=== PATIENT | male | born 1960 | race Caucasian/White ===

== ENCOUNTER 2016-10-14 13:45 | Inpatient (IN) | payer OTHER ==
[~2016-10-14 13:45] MED LIST: ALLEGRA-D1 TAB.SR PO; BYSTOLIC5 M1 PO; BYSTOLIC5 MG PO; MOBIC15 M1 PO; NORCO 5-325 TA1 EACH PO
[2016-10-14 14:49] LABS: BASO % 1.1 % (0-2); BASO ABSOLUTE COUNT 0.2 tho/cmm (0.0-0.2); EOS % 1.8 % (0-7); EOSINOPHIL ABSOLUTE COUNT 0.3 tho/cmm (0.0-0.7); HGB-HEMOGLOBIN 14.2 gm/dl (13.5-17.0); IMMATURE GRANULOCYTES ABSOLUTE 0.24 tho/cmm (0-0.03); IMMATURE GRANULOCYTES PERCENT 1.6 % (0-0.3); LYMPH % 7.2 % (20-45); LYMPH ABSOLUTE COUNT 1.1 tho/cmm (0.8-4.5); MCHC MEAN CORPUSCULAR HGB CONC 36.4 % (32.0-36.0); MCV (MEAN CELL VOLUME) 90.7 fl (82.0-96.0); MONO % 10.8 % (0-12); MONOCYTE ABSOLUTE COUNT 1.6 tho/cmm (0.0-1.2); NEUTROPHIL ABSOLUTE COUNT 11.7 tho/cmm (1.6-8.0); NEUTROPHIL-AUTOMATED 11.7 tho/cmm (1.6-8.0); NEUTROPHILS % 77.5 % (40-80); PLATELET COUNT 240 tho/cmm (150-450); RED CELL DISTRIBUTION WIDTH 15.9 % (12.4-16.4); WHITE BLOOD COUNT 15.1 tho/cmm (4.0-10.0)
[2016-10-14 14:52] LABS: INR 2.5 INR (0.9-1.1); PROTHROMBIN TIME 29.3 SECONDS (9.0-13.6)
[2016-10-14 15:07] LABS: ALBUMIN 2.3 g/dl (3.5-5.0); ALCOHOL (ETOH) <10 mg/dl (<10); ALKALINE PHOSPHATASE 227 U/L (33-138); ALT/SGPT 49 U/L (12-78); BLOOD UREA NITROGEN 29 mg/dl (6-24); CALCIUM 8.1 mg/dl (8.5-10.5); CARBON DIOXIDE-VENOUS 23 mmol/L (22-32); CHLORIDE 94 mmol/l (96-110); GLUCOSE 93 mg/dL (70-110); LIPASE 188 U/L (73-393); SODIUM 128 mmol/L (135-145)
[2016-10-14 15:12] LABS: ALB/GLOB RATIO 0.5 (0.8-2.0); ANION GAP 15 mmol/L (0-20); AST/SGOT 213 U/L (10-40); CREATININE 1.87 mg/dl (0.60-1.30); POTASSIUM 3.7 mmol/L (3.7-5.1); eGFR VALUE FOR BLACK 46 mL/Min
[2016-10-14 15:15] LABS: BILIRUBIN,TOTAL 25.1 mg/dl (0.0-1.5)
[2016-10-14] MEDS ORDERED: [UNRECOGNIZED DRUG - OTHER] PO (16:23)
[2016-10-14] MEDS ORDERED: IBUPROFEN200 M2 PO (16:24)
[2016-10-14 16:35] LABS: URINE BILIRUBIN MODERATE (NEG); URINE BLOOD SMALL (NEG); URINE GLUCOSE (UA) NEGATIVE (NEG); URINE KETONE NEGATIVE (NEG); URINE LEUKOCYTE ESTERASE POSITIVE (NEG); URINE NITRITE NEGATIVE (NEG); URINE PH 6.5 (5.0-8.0); URINE PROTEIN MODERATE (NEG)
[2016-10-14 16:36] LABS: URINE APPEARANCE CLOUDY; URINE COLOR DARK YELLOW
[2016-10-14 16:45] LABS: URINE AMORPHOUS 2+; URINE BACTERIA 1+; URINE RBC RARE /[HPF] (0-5)
[2016-10-14 22:01] LABS: URINE TOTAL PROTEIN-RANDOM 32.3 mg/dl (<11.8)
[2016-10-15 02:39] LABS: URINE PRT/CR RATIO 0.27 Ratio (0.0-0.20)
[2016-10-15 05:49] LABS: BASO % 1.2 % (0-2); BASO ABSOLUTE COUNT 0.2 tho/cmm (0.0-0.2); EOS % 1.9 % (0-7); EOSINOPHIL ABSOLUTE COUNT 0.3 tho/cmm (0.0-0.7); HCT-HEMATOCRIT 37.7 % (36.0-53.5); HGB-HEMOGLOBIN 13.5 gm/dl (13.5-17.0); IMMATURE GRANULOCYTES ABSOLUTE 0.31 tho/cmm (0-0.03); IMMATURE GRANULOCYTES PERCENT 1.8 % (0-0.3); INR 2.5 INR (0.9-1.1); LYMPH % 8.7 % (20-45); LYMPH ABSOLUTE COUNT 1.5 tho/cmm (0.8-4.5); MCH (MEAN CORPUSCULAR HGB) 32.7 pg (28.0-32.0); MCHC MEAN CORPUSCULAR HGB CONC 35.8 % (32.0-36.0); MCV (MEAN CELL VOLUME) 91.3 fl (82.0-96.0); MEAN PLATELET VOLUME 10.8 cmc (9.4-12.4); MONO % 11.1 % (0-12); MONOCYTE ABSOLUTE COUNT 1.9 tho/cmm (0.0-1.2); NEUTROPHIL ABSOLUTE COUNT 12.9 tho/cmm (1.6-8.0); NEUTROPHIL-AUTOMATED 12.9 tho/cmm (1.6-8.0); NEUTROPHILS % 75.3 % (40-80); PLATELET COUNT 253 tho/cmm (150-450); PROTHROMBIN TIME 29.7 SECONDS (9.0-13.6); RED BLOOD COUNT 4.13 mil/cmm (4.40-5.70); RED CELL DISTRIBUTION WIDTH 15.8 % (12.4-16.4); WHITE BLOOD COUNT 17.1 tho/cmm (4.0-10.0)
[2016-10-15 06:03] LABS: ALBUMIN 2.2 g/dl (3.5-5.0); ALKALINE PHOSPHATASE 226 U/L (33-138); ALT/SGPT 48 U/L (12-78); AMYLASE 21 U/L (20-90); AST/SGOT 188 U/L (10-40); BLOOD UREA NITROGEN 27 mg/dl (6-24); CALCIUM 7.7 mg/dl (8.5-10.5); CARBON DIOXIDE-VENOUS 24 mmol/L (22-32); CHLORIDE 98 mmol/l (96-110); GLUCOSE 85 mg/dL (70-110); MAGNESIUM 3.1 mg/dl (1.8-2.6); PHOSPHOROUS 1.9 mg/dl (2.5-4.9); SODIUM 132 mmol/L (135-145)
[2016-10-15 06:14] LABS: ALB/GLOB RATIO 0.5 (0.8-2.0); ANION GAP 13 mmol/L (0-20); BILIRUBIN,DIRECT 22.2 mg/dl (0.0-0.3); BILIRUBIN,INDIRECT 3.2 mg/dL (0.0-1.0); CREATININE 1.67 mg/dl (0.60-1.30); LIPASE 318 U/L (73-393); eGFR VALUE FOR BLACK 53 mL/Min
[2016-10-15 06:16] LABS: BILIRUBIN,TOTAL 25.4 mg/dl (0.0-1.5); POTASSIUM 2.9 mmol/L (3.7-5.1)
[2016-10-15 09:45] LABS: IRON 89 ug/dl (49-181); IRON BINDING CAPACITY 157 ug/dl (250-450)
[2016-10-15 14:31] LABS: BODY FLUID APPEARANCE CLEAR (CLEAR); BODY FLUID VOLUME 1100 ml
[2016-10-15 14:32] LABS: BODY FLUID COLOR YELLOW (COLORLESS)
[2016-10-15 14:33] LABS: BODY FLUID RBC COUNT <1000 cmm (0); BODY FLUID WBC COUNT 98 cmm
[2016-10-15 16:29] LABS: BODY FLUID LYMPHOCYTES 6 %; BODY FLUID MACROPHAGES 78 %; BODY FLUID MESOTHELIAL CELLS 3 %; BODY FLUID NEUTROPHILS 13 %
[2016-10-16 05:24] LABS: BASO % 0.9 % (0-2); BASO ABSOLUTE COUNT 0.1 tho/cmm (0.0-0.2); EOS % 2.3 % (0-7); EOSINOPHIL ABSOLUTE COUNT 0.3 tho/cmm (0.0-0.7); HCT-HEMATOCRIT 35.1 % (36.0-53.5); HGB-HEMOGLOBIN 12.6 gm/dl (13.5-17.0); IMMATURE GRANULOCYTES ABSOLUTE 0.28 tho/cmm (0-0.03); IMMATURE GRANULOCYTES PERCENT 1.9 % (0-0.3); LYMPH % 8.5 % (20-45); LYMPH ABSOLUTE COUNT 1.3 tho/cmm (0.8-4.5); MCH (MEAN CORPUSCULAR HGB) 32.8 pg (28.0-32.0); MCHC MEAN CORPUSCULAR HGB CONC 35.9 % (32.0-36.0); MCV (MEAN CELL VOLUME) 91.4 fl (82.0-96.0); MEAN PLATELET VOLUME 10.8 cmc (9.4-12.4); MONO % 9.8 % (0-12); MONOCYTE ABSOLUTE COUNT 1.5 tho/cmm (0.0-1.2); NEUTROPHIL ABSOLUTE COUNT 11.3 tho/cmm (1.6-8.0); NEUTROPHIL-AUTOMATED 11.3 tho/cmm (1.6-8.0); NEUTROPHILS % 76.6 % (40-80); PLATELET COUNT 201 tho/cmm (150-450); RED BLOOD COUNT 3.84 mil/cmm (4.40-5.70); RED CELL DISTRIBUTION WIDTH 16.1 % (12.4-16.4); WHITE BLOOD COUNT 14.8 tho/cmm (4.0-10.0)
[2016-10-16 05:25] LABS: INR 2.4 INR (0.9-1.1); PROTHROMBIN TIME 28.5 SECONDS (9.0-13.6)
[2016-10-16 05:34] LABS: ALBUMIN 2.5 g/dl (3.5-5.0); ALKALINE PHOSPHATASE 172 U/L (33-138); ALT/SGPT 42 U/L (12-78); ANION GAP 15 mmol/L (0-20); AST/SGOT 174 U/L (10-40); BLOOD UREA NITROGEN 20 mg/dl (6-24); CALCIUM 7.4 mg/dl (8.5-10.5); CARBON DIOXIDE-VENOUS 19 mmol/L (22-32); CHLORIDE 104 mmol/l (96-110); GLUCOSE 74 mg/dL (70-110); POTASSIUM 3.1 mmol/L (3.7-5.1); SODIUM 135 mmol/L (135-145)
[2016-10-16 05:36] LABS: ALB/GLOB RATIO 0.7 (0.8-2.0); CREATININE 1.28 mg/dl (0.60-1.30); eGFR VALUE FOR BLACK 73 mL/Min
[2016-10-16 05:39] LABS: BILIRUBIN,TOTAL 24.8 mg/dl (0.0-1.5)
[2016-10-16 11:31] LABS: BODY FLUID TYPE ASCITIES; FLUID ALBUMIN <0.6 g/dl
[2016-10-17 06:03] LABS: BASO % 0.7 % (0-2); BASO ABSOLUTE COUNT 0.2 tho/cmm (0.0-0.2); EOS % 1.2 % (0-7); EOSINOPHIL ABSOLUTE COUNT 0.3 tho/cmm (0.0-0.7); HCT-HEMATOCRIT 36.3 % (36.0-53.5); HGB-HEMOGLOBIN 12.8 gm/dl (13.5-17.0); IMMATURE GRANULOCYTES ABSOLUTE 0.51 tho/cmm (0-0.03); IMMATURE GRANULOCYTES PERCENT 2.3 % (0-0.3); LYMPH % 7.2 % (20-45); LYMPH ABSOLUTE COUNT 1.6 tho/cmm (0.8-4.5); MCH (MEAN CORPUSCULAR HGB) 32.7 pg (28.0-32.0); MCHC MEAN CORPUSCULAR HGB CONC 35.3 % (32.0-36.0); MCV (MEAN CELL VOLUME) 92.8 fl (82.0-96.0); MEAN PLATELET VOLUME 10.9 cmc (9.4-12.4); MONO % 9.3 % (0-12); MONOCYTE ABSOLUTE COUNT 2.1 tho/cmm (0.0-1.2); NEUTROPHIL ABSOLUTE COUNT 17.6 tho/cmm (1.6-8.0); NEUTROPHIL-AUTOMATED 17.6 tho/cmm (1.6-8.0); NEUTROPHILS % 79.3 % (40-80); PLATELET COUNT 208 tho/cmm (150-450); RED BLOOD COUNT 3.91 mil/cmm (4.40-5.70); RED CELL DISTRIBUTION WIDTH 16.4 % (12.4-16.4); WHITE BLOOD COUNT 22.2 tho/cmm (4.0-10.0)
[2016-10-17 06:06] LABS: INR 2.3 INR (0.9-1.1); PROTHROMBIN TIME 26.9 SECONDS (9.0-13.6)
[2016-10-17 06:20] LABS: ALBUMIN 2.4 g/dl (3.5-5.0); ALKALINE PHOSPHATASE 189 U/L (33-138); ALT/SGPT 48 U/L (12-78); AST/SGOT 179 U/L (10-40); BLOOD UREA NITROGEN 20 mg/dl (6-24); CALCIUM 7.6 mg/dl (8.5-10.5); CARBON DIOXIDE-VENOUS 21 mmol/L (22-32); CHLORIDE 105 mmol/l (96-110); GLUCOSE 106 mg/dL (70-110); MAGNESIUM 2.9 mg/dl (1.8-2.6); SODIUM 137 mmol/L (135-145)
[2016-10-17 06:23] LABS: ALB/GLOB RATIO 0.6 (0.8-2.0); ANION GAP 14 mmol/L (0-20); eGFR VALUE FOR BLACK 74 mL/Min
[2016-10-17 06:24] LABS: CREATININE 1.27 mg/dl (0.60-1.30)
[2016-10-17 06:25] LABS: PHOSPHOROUS 0.9 mg/dl (2.5-4.9); POTASSIUM 2.9 mmol/L (3.7-5.1)
[2016-10-17 06:27] LABS: BILIRUBIN,TOTAL 24.9 mg/dl (0.0-1.5)
[2016-10-18 06:05] LABS: BASO ABSOLUTE COUNT 0.2 tho/cmm (0.0-0.2); EOS % 2.3 % (0-7); EOSINOPHIL ABSOLUTE COUNT 0.5 tho/cmm (0.0-0.7); HCT-HEMATOCRIT 37.3 % (36.0-53.5); HGB-HEMOGLOBIN 13.1 gm/dl (13.5-17.0); IMMATURE GRANULOCYTES PERCENT 1.8 % (0-0.3); LYMPH % 9.3 % (20-45); MCH (MEAN CORPUSCULAR HGB) 32.8 pg (28.0-32.0); MCHC MEAN CORPUSCULAR HGB CONC 35.1 % (32.0-36.0); MCV (MEAN CELL VOLUME) 93.3 fl (82.0-96.0); MEAN PLATELET VOLUME 11.1 cmc (9.4-12.4); MONO % 7.8 % (0-12); MONOCYTE ABSOLUTE COUNT 1.7 tho/cmm (0.0-1.2); NEUTROPHILS % 77.8 % (40-80); PLATELET COUNT 175 tho/cmm (150-450); RED CELL DISTRIBUTION WIDTH 16.5 % (12.4-16.4); WHITE BLOOD COUNT 21.9 tho/cmm (4.0-10.0)
[2016-10-18 06:09] LABS: INR 2.1 INR (0.9-1.1); PROTHROMBIN TIME 24.8 SECONDS (9.0-13.6)
[2016-10-18 06:23] LABS: ALBUMIN 2.5 g/dl (3.5-5.0); ALKALINE PHOSPHATASE 197 U/L (33-138); ALT/SGPT 60 U/L (12-78); ANION GAP 14 mmol/L (0-20); AST/SGOT 217 U/L (10-40); BLOOD UREA NITROGEN 17 mg/dl (6-24); CALCIUM 7.7 mg/dl (8.5-10.5); CARBON DIOXIDE-VENOUS 19 mmol/L (22-32); CHLORIDE 112 mmol/l (96-110); GLUCOSE 78 mg/dL (70-110); MAGNESIUM 2.6 mg/dl (1.8-2.6); PHOSPHOROUS 1.3 mg/dl (2.5-4.9); POTASSIUM 3.6 mmol/L (3.7-5.1); PREALBUMIN 3.8 mg/dl (20.0-40.0); SODIUM 141 mmol/L (135-145)
[2016-10-18 06:31] LABS: ALB/GLOB RATIO 0.7 (0.8-2.0); CREATININE 1.08 mg/dl (0.60-1.30); eGFR VALUE FOR BLACK 90 mL/Min
[2016-10-18 06:32] LABS: BILIRUBIN,TOTAL 26.4 mg/dl (0.0-1.5)
[2016-10-18 13:35] LABS: INR 1.8 INR (0.9-1.1)
[2016-10-18 13:42] LABS: PROTHROMBIN TIME 20.7 SECONDS (9.0-13.6)
[2016-10-18 18:10] LABS: BODY FLUID APPEARANCE CLEAR (CLEAR); BODY FLUID COLOR YELLOW (COLORLESS); BODY FLUID RBC COUNT <1000 cmm (0); BODY FLUID VOLUME 1000 ml; BODY FLUID WBC COUNT 78 cmm
[2016-10-19 05:46] LABS: BASO % 0.2 % (0-2); EOS % 0.4 % (0-7); EOSINOPHIL ABSOLUTE COUNT 0.1 tho/cmm (0.0-0.7); HCT-HEMATOCRIT 36.2 % (36.0-53.5); HGB-HEMOGLOBIN 12.6 gm/dl (13.5-17.0); IMMATURE GRANULOCYTES ABSOLUTE 0.25 tho/cmm (0-0.03); IMMATURE GRANULOCYTES PERCENT 1.2 % (0-0.3); LYMPH % 6.3 % (20-45); LYMPH ABSOLUTE COUNT 1.3 tho/cmm (0.8-4.5); MCH (MEAN CORPUSCULAR HGB) 32.9 pg (28.0-32.0); MCHC MEAN CORPUSCULAR HGB CONC 34.8 % (32.0-36.0); MCV (MEAN CELL VOLUME) 94.5 fl (82.0-96.0); MEAN PLATELET VOLUME 11.2 cmc (9.4-12.4); MONO % 7.3 % (0-12); MONOCYTE ABSOLUTE COUNT 1.6 tho/cmm (0.0-1.2); NEUTROPHIL ABSOLUTE COUNT 17.9 tho/cmm (1.6-8.0); NEUTROPHIL-AUTOMATED 17.9 tho/cmm (1.6-8.0); NEUTROPHILS % 84.6 % (40-80); PLATELET COUNT 146 tho/cmm (150-450); RED BLOOD COUNT 3.83 mil/cmm (4.40-5.70); RED CELL DISTRIBUTION WIDTH 16.7 % (12.4-16.4); WHITE BLOOD COUNT 21.1 tho/cmm (4.0-10.0)
[2016-10-19 06:06] LABS: ALBUMIN 2.5 g/dl (3.5-5.0); ALKALINE PHOSPHATASE 173 U/L (33-138); ALT/SGPT 61 U/L (12-78); ANION GAP 15 mmol/L (0-20); AST/SGOT 186 U/L (10-40); BLOOD UREA NITROGEN 17 mg/dl (6-24); CALCIUM 8.2 mg/dl (8.5-10.5); CARBON DIOXIDE-VENOUS 19 mmol/L (22-32); CHLORIDE 109 mmol/l (96-110); GLUCOSE 106 mg/dL (70-110); POTASSIUM 3.6 mmol/L (3.7-5.1); SODIUM 139 mmol/L (135-145)
[2016-10-19 06:18] LABS: BODY FLUID TYPE ASCITIC FLUID
[2016-10-19 06:38] LABS: ALB/GLOB RATIO 0.6 (0.8-2.0); eGFR VALUE FOR BLACK 62 mL/Min
[2016-10-19 06:39] LABS: BILIRUBIN,TOTAL 23.4 mg/dl (0.0-1.5); CREATININE 1.47 mg/dl (0.60-1.30)
[2016-10-20 05:16] LABS: BASO % 0.2 % (0-2); EOS % 0.2 % (0-7); EOSINOPHIL ABSOLUTE COUNT 0.1 tho/cmm (0.0-0.7); HCT-HEMATOCRIT 37.1 % (36.0-53.5); HGB-HEMOGLOBIN 12.7 gm/dl (13.5-17.0); IMMATURE GRANULOCYTES ABSOLUTE 0.44 tho/cmm (0-0.03); IMMATURE GRANULOCYTES PERCENT 1.7 % (0-0.3); LYMPH % 6.2 % (20-45); LYMPH ABSOLUTE COUNT 1.6 tho/cmm (0.8-4.5); MCH (MEAN CORPUSCULAR HGB) 32.7 pg (28.0-32.0); MCHC MEAN CORPUSCULAR HGB CONC 34.2 % (32.0-36.0); MCV (MEAN CELL VOLUME) 95.6 fl (82.0-96.0); MEAN PLATELET VOLUME 11.4 cmc (9.4-12.4); MONO % 8.1 % (0-12); MONOCYTE ABSOLUTE COUNT 2.1 tho/cmm (0.0-1.2); NEUTROPHIL ABSOLUTE COUNT 21.5 tho/cmm (1.6-8.0); NEUTROPHIL-AUTOMATED 21.5 tho/cmm (1.6-8.0); NEUTROPHILS % 83.6 % (40-80); PLATELET COUNT 164 tho/cmm (150-450); RED BLOOD COUNT 3.88 mil/cmm (4.40-5.70); RED CELL DISTRIBUTION WIDTH 16.8 % (12.4-16.4); WHITE BLOOD COUNT 25.7 tho/cmm (4.0-10.0)
[2016-10-20 05:24] LABS: INR 2.1 INR (0.9-1.1); PROTHROMBIN TIME 25.1 SECONDS (9.0-13.6)
[2016-10-20 05:34] LABS: ALBUMIN 2.5 g/dl (3.5-5.0); ALKALINE PHOSPHATASE 177 U/L (33-138); ALT/SGPT 70 U/L (12-78); ANION GAP 14 mmol/L (0-20); AST/SGOT 169 U/L (10-40); BLOOD UREA NITROGEN 24 mg/dl (6-24); CALCIUM 8.4 mg/dl (8.5-10.5); CARBON DIOXIDE-VENOUS 20 mmol/L (22-32); CHLORIDE 108 mmol/l (96-110); GLUCOSE 104 mg/dL (70-110); SODIUM 138 mmol/L (135-145)
[2016-10-20 05:43] LABS: ALB/GLOB RATIO 0.6 (0.8-2.0); BILIRUBIN,TOTAL 21.3 mg/dl (0.0-1.5); CREATININE 1.26 mg/dl (0.60-1.30); eGFR VALUE FOR BLACK 74 mL/Min
[2016-10-20 05:44] LABS: PHOSPHOROUS 0.9 mg/dl (2.5-4.9)
[2016-10-20 14:14] LABS: BASO % 0.2 % (0-2); BASO ABSOLUTE COUNT 0.1 tho/cmm (0.0-0.2); EOS % 1.2 % (0-7); EOSINOPHIL ABSOLUTE COUNT 0.3 tho/cmm (0.0-0.7); HCT-HEMATOCRIT 36.6 % (36.0-53.5); HGB-HEMOGLOBIN 12.8 gm/dl (13.5-17.0); IMMATURE GRANULOCYTES ABSOLUTE 0.59 tho/cmm (0-0.03); IMMATURE GRANULOCYTES PERCENT 2.1 % (0-0.3); LYMPH % 9.8 % (20-45); LYMPH ABSOLUTE COUNT 2.7 tho/cmm (0.8-4.5); MCH (MEAN CORPUSCULAR HGB) 33.3 pg (28.0-32.0); MCV (MEAN CELL VOLUME) 95.3 fl (82.0-96.0); MONO % 7.9 % (0-12); MONOCYTE ABSOLUTE COUNT 2.2 tho/cmm (0.0-1.2); NEUTROPHIL ABSOLUTE COUNT 21.8 tho/cmm (1.6-8.0); NEUTROPHIL-AUTOMATED 21.8 tho/cmm (1.6-8.0); NEUTROPHILS % 78.8 % (40-80); PLATELET COUNT 166 tho/cmm (150-450); RED BLOOD COUNT 3.84 mil/cmm (4.40-5.70); RED CELL DISTRIBUTION WIDTH 16.8 % (12.4-16.4); WHITE BLOOD COUNT 27.7 tho/cmm (4.0-10.0)
[2016-10-20 14:27] LABS: ANION GAP 14 mmol/L (0-20); BLOOD UREA NITROGEN 26 mg/dl (6-24); CALCIUM 8.3 mg/dl (8.5-10.5); CARBON DIOXIDE-VENOUS 22 mmol/L (22-32); CHLORIDE 109 mmol/l (96-110); GLUCOSE 105 mg/dL (70-110); PHOSPHOROUS 1.5 mg/dl (2.5-4.9); POTASSIUM 4.4 mmol/L (3.7-5.1); SODIUM 141 mmol/L (135-145); eGFR VALUE FOR BLACK 72 mL/Min
[2016-10-20 14:30] LABS: CREATININE 1.29 mg/dl (0.60-1.30)
[2016-10-21 05:53] LABS: BASO % 0.1 % (0-2); HCT-HEMATOCRIT 35.4 % (36.0-53.5); HGB-HEMOGLOBIN 12.2 gm/dl (13.5-17.0); IMMATURE GRANULOCYTES ABSOLUTE 0.45 tho/cmm (0-0.03); IMMATURE GRANULOCYTES PERCENT 1.7 % (0-0.3); LYMPH % 6.2 % (20-45); LYMPH ABSOLUTE COUNT 1.7 tho/cmm (0.8-4.5); MCH (MEAN CORPUSCULAR HGB) 32.4 pg (28.0-32.0); MCHC MEAN CORPUSCULAR HGB CONC 34.5 % (32.0-36.0); MCV (MEAN CELL VOLUME) 94.1 fl (82.0-96.0); MEAN PLATELET VOLUME 11.7 cmc (9.4-12.4); MONO % 8.9 % (0-12); MONOCYTE ABSOLUTE COUNT 2.4 tho/cmm (0.0-1.2); NEUTROPHIL ABSOLUTE COUNT 22.3 tho/cmm (1.6-8.0); NEUTROPHIL-AUTOMATED 22.3 tho/cmm (1.6-8.0); NEUTROPHILS % 83.1 % (40-80); PLATELET COUNT 141 tho/cmm (150-450); RED BLOOD COUNT 3.76 mil/cmm (4.40-5.70); WHITE BLOOD COUNT 26.8 tho/cmm (4.0-10.0)
[2016-10-21 05:56] LABS: PROTHROMBIN TIME 24.3 SECONDS (9.0-13.6)
[2016-10-21 06:06] LABS: ALB/GLOB RATIO 0.6 (0.8-2.0); ALBUMIN 2.4 g/dl (3.5-5.0); ALKALINE PHOSPHATASE 169 U/L (33-138); ALT/SGPT 80 U/L (12-78); ANION GAP 14 mmol/L (0-20); AST/SGOT 181 U/L (10-40); BLOOD UREA NITROGEN 24 mg/dl (6-24); CALCIUM 8.2 mg/dl (8.5-10.5); CARBON DIOXIDE-VENOUS 21 mmol/L (22-32); CHLORIDE 108 mmol/l (96-110); CREATININE 1.11 mg/dl (0.60-1.30); GLUCOSE 100 mg/dL (70-110); PHOSPHOROUS 2.3 mg/dl (2.5-4.9); POTASSIUM 4.6 mmol/L (3.7-5.1); SODIUM 138 mmol/L (135-145); eGFR VALUE FOR BLACK 87 mL/Min
[2016-10-21 06:07] LABS: BILIRUBIN,TOTAL 16.6 mg/dl (0.0-1.5)
[2016-10-21 06:17] LABS: PROCALCITONIN 0.27 ng/ml (0.05-0.09)
[2016-10-21] MEDS ORDERED: LASIX40 M1 PO (15:24)
[2016-10-21] MEDS ORDERED: ALDACTONE50 M1 PO (15:25)
[2016-10-21] MEDS ORDERED: PREDNISONE5 MG/5 M1 PO/SL (15:39)
[2016-10-21] MEDS ORDERED: OMEPRAZOLE40 M2 PO (15:40)
== END 2016-10-21 16:01 | DRG 432 ==
LOC: EDMED 13:45 → EMR2 19:21 → PCUB 21:00
PROVIDERS: Family Medicine; Internal Medicine; Internal Medicine Gastroenterology; Physician Assistant; ADMIT Hospitalist
PROC: 0W9G3ZZ Drainage of Peritoneal Cavity, Percutaneous Approach (ICD-10-PCS; 2016-10-15)
PROC: 0FB13ZX Excision of Right Lobe Liver, Percutaneous Approach, Diagnostic (ICD-10-PCS; principal; 2016-10-18)
PROC: 0W9G3ZZ Drainage of Peritoneal Cavity, Percutaneous Approach (ICD-10-PCS; 2016-10-18)
PROC: 30233N1 Transfusion of Nonautologous Red Blood Cells into Peripheral Vein, Percutaneous Approach (ICD-10-PCS; 2016-10-18)
DX: K70.11 Alcoholic hepatitis with ascites (principal); E43 Unspecified severe protein-calorie malnutrition; K70.31 Alcoholic cirrhosis of liver with ascites; N17.9 Acute kidney failure, unspecified; K51.00 Ulcerative (chronic) pancolitis without complications; E87.1 Hypo-osmolality and hyponatremia; D68.9 Coagulation defect, unspecified; Z68.31 Body mass index [BMI] 31.0-31.9, adult; K59.00 Constipation, unspecified; G89.29 Other chronic pain; I10 Essential (primary) hypertension; J45.909 Unspecified asthma, uncomplicated; F17.210 Nicotine dependence, cigarettes, uncomplicated; F10.10 Alcohol abuse, uncomplicated; E88.09 Other disorders of plasma-protein metabolism, not elsewhere classified; M54.9 Dorsalgia, unspecified; E87.6 Hypokalemia; D72.829 Elevated white blood cell count, unspecified; T38.0X5A Adverse effect of glucocorticoids and synthetic analogues, initial encounter; E83.39 Other disorders of phosphorus metabolism; R16.0 Hepatomegaly, not elsewhere classified
CPT/HCPCS: C1729; G0480; J0295; J1200; J2250; J3010; J3430; J3480; J7030; J7050; J7512; P9017; P9045; P9047; Q9967